=== PATIENT | male | born 1980 | race Caucasian/White ===

== ENCOUNTER → 2025-08-11 08:13 | Outpatient (REF) | payer OTHER, SELFPAY | LOC: HWRCS 08:13 | PROVIDERS: ATTENDING PHYSICIAN Internal Medicine; FAMILY PHYSICIAN Internal Medicine | DX: R07.9 Chest pain, unspecified (principal); E78.00 Pure hypercholesterolemia, unspecified; Z82.49 Family history of ischemic heart disease and other diseases of the circulatory system | CPT/HCPCS: 93306 ==

== ENCOUNTER → 2025-08-14 07:32 | Outpatient (REF) | payer OTHER, SELFPAY | LOC: RCS 07:32 | PROVIDERS: ATTENDING PHYSICIAN Internal Medicine; FAMILY PHYSICIAN Internal Medicine | DX: R07.9 Chest pain, unspecified (principal); E78.00 Pure hypercholesterolemia, unspecified; Z82.49 Family history of ischemic heart disease and other diseases of the circulatory system | CPT/HCPCS: 93017 ==